=== PATIENT | female | born 1960 | race African-American/Black ===

== ENCOUNTER 2021-10-17 18:59 | Emergency (ER) | payer OTHER, BC ==
[~2021-10-17] VITALS: Ht 167.6 cm; Wt 82.1 kg
[2021-10-17 19:33] VITALS: BP 141/89
[2021-10-17 19:40] VITALS: BP 141/89
--- NOTE | 2021-10-17 19:40 | NUR ---
TO LOBBY FOLLOWING TRIAGE
--- NOTE | 2021-10-17 20:10 | NUR ---
PATIENT AMBULATED TO THE RR, URINE COLLECTED
--- NOTE | 2021-10-17 20:10 | NUR ---
LAB COLLECTED BLOOD
[2021-10-17 20:13] LABS: BASOPHILS % (AUTO) 0.9 % (0.0-2.0); EOSINOPHILS % (AUTO) 0.9 % (0.0-4.0); HEMOGLOBIN 12.6 g/dL (12.0-16.0); LYMPHOCYTES # (AUTO) 2.3 K/uL (2.5-16.5); LYMPHOCYTES % (AUTO) 48.2 % (20.5-51.1); MEAN CORPUSCULAR HEMOGLOBIN 27 pg (27-31); MEAN CORPUSCULAR HGB CONC 33 g/dL (33-37); MEAN CORPUSCULAR VOLUME 82.6 fL (80-94); MONOCYTES # (AUTO) 0.3 K/uL (0.8-1.0); MONOCYTES % (AUTO) 6.6 % (1.7-9.3); NEUTROPHILS # (AUTO) 2.1 K/uL (1.8-7.7); NEUTROPHILS % (AUTO) 43.4 % (42.2-75.2); PLATELET COUNT (AUTO) 466 K/uL (140-450); RED CELL DISTRIBUTION WIDTH 14.7 % (11.6-13.7); WHITE BLOOD COUNT (AUTO) 4.8 K/uL (4.8-10.8)
--- NOTE | 2021-10-17 20:30 | NUR ---
61/F WAS D/C'D FROM HOSPITAL 10 DAYS AGO AFTER HAVING SEPSIS. LAST DOSE OF ANTIBIOTICS WAS 4 DAYS AGO. STILL C/O BACK PAIN AND NAUSEA "THE SAME THING I HAD BEFORE" WAS TAKING "CEFDINIR". SKIN IS INTACT, PINK/WARM/DRY; AAOX4, PERRL, WITH EVEN AND STEADY GAIT; LUNGS CLEAR BL, BREATHING UNLABORED; HR EVEN AND REGULAR, BL PERIPHERAL PULSES PRESENT; BS ACTIVE X4. PT DENIES ANY FEVER, CP, SOB, OR COUGH AT THIS TIME; PT STATES 0/10 PAIN AT THIS TIME; VSS; PATIENT POSITIONED FOR COMFORT; HOB ELEVATED; BEDRAILS UP X2; BED DOWN.
[2021-10-17] MEDS ORDERED: ONDANSETRON 4 MG ODT PO ONE (20:40)
--- NOTE | 2021-10-17 21:10 | NUR ---
PATIENT DENIES XRAY AT THIS TIME. STATED IT WAS NOT NECCESSARY
[2021-10-17 21:13] LABS: APPEARANCE,URINE CLEAR (CLEAR); BILIRUBIN,URINE NEGATIVE (NEGATIVE); BLOOD, URINE NEGATIVE (NEGATIVE); COLOR,URINE YELLOW (YELLOW); LEUKOCYTE ESTERASE ,URINE NEGATIVE (NEGATIVE); NITRITE, URINE NEGATIVE (NEGATIVE); UGLUCOSE NEGATIVE (NEGATIVE)
[2021-10-17 21:20] LABS: ALBUMIN 3.1 g/dL (3.4-5.0); CARBON DIOXIDE 28.3 mmol/L (21-32); CREATININE 1.2 mg/dL (0.6-1.3); POTASSIUM 4.3 mmol/L (3.5-5.1); TOTAL BILIRUBIN 0.3 mg/dL (0.0-1.0)
--- NOTE | 2021-10-17 21:34 | NUR ---
VVS, PATIENT CALM IN BED WITH BLANKET. SIDERAILS UP FOR SAFETY. BED IN LOWEST POSITION AND LOCKED.
[2021-10-17] MEDS ORDERED: ONDA-188 PO (21:40)
--- NOTE | 2021-10-17 21:53 | NUR ---
Patient discharged with v/s stable. Written and verbal after care instructions given on nausea and explained. Patient alert, oriented and verbalized understanding of instructions. Ambulatory with steady gait. All questions addressed prior to discharge. ID band removed. Patient advised to follow up with PMD. Rx of Zofran given.
== END 2021-10-17 21:53 | disposition home or self-care (01) ==
LOC: MED 18:59
DX: R11.0 Nausea (principal); M54.9 Dorsalgia, unspecified; R68.83 Chills (without fever); Z79.899 Other long term (current) drug therapy; Z88.1 Allergy status to other antibiotic agents
CPT/HCPCS: 36415; 80053; 81003; 82550; 83605; 85025; 85610; 85730; 87040; 87086; 93005; 99284; Q0162